=== PATIENT | female | born 1965 | race African-American/Black ===

== ENCOUNTER 2018-03-01 16:34 | Emergency (ER) | payer SELFPAY | END 2018-03-01 21:32 | disposition home or self-care (01) | LOC: D.ER 16:34 | DX: R51 Headache (principal); J01.90 Acute sinusitis, unspecified ==

== ENCOUNTER 2018-05-05 16:35 | Emergency (ER) | payer SELFPAY ==
[~2018-05-05] VITALS: Ht 162.6 cm; Wt 90.5 kg
[2018-05-05 16:47] VITALS: Ht 162.6 cm; Wt 90.5 kg
[2018-05-05] MEDS ORDERED: ULTRAM50 MG PO ×2 (16:49→17:26)
[2018-05-05] MEDS ORDERED: GABAPENTIN100 MG PO (16:49)
[2018-05-05] MEDS ORDERED: CORTISPORIN OTI10 M1 EACH EAR (17:25)
[2018-05-05] MEDS ORDERED: KEFLEX500 MG PO (17:25)
[2018-05-05 17:47] VITALS: BP 128/80
== END 2018-05-05 17:44 | disposition home or self-care (01) ==
LOC: D.ER 16:35
DX: H66.92 Otitis media, unspecified, left ear (principal); L02.01 Cutaneous abscess of face; F17.200 Nicotine dependence, unspecified, uncomplicated

== ENCOUNTER 2018-06-02 18:09 | Emergency (ER) | payer MEDICAID ==
[~2018-06-02] VITALS: Ht 162.6 cm; Wt 85.9 kg
[~2018-06-02 18:09] MED LIST: CORTISPORIN OTI10 M1 EACH EAR; GABAPENTIN100 MG PO; KEFLEX500 MG PO; ULTRAM50 MG PO
[2018-06-02 18:15] VITALS: Ht 162.6 cm; Wt 85.9 kg
[2018-06-02] MEDS ORDERED: AMBIEN5 MG PO (18:18)
[2018-06-02 18:43] LABS: BASOPHILS 0.2 % (0-2); HEMATOCRIT 32.5 % (36.0-48.0); HEMOGLOBIN 9.8 g/dL (12-16); IMMATURE GRANULOCYTES 0.2 % (0-5); LYMPHOCYTES 48.1 % (15-50); MCH 21.8 pg (26.0-34.0); MCHC 30.2 g/dL (31.0-37.0); MCV 72.4 fL (80.0-100.0); MONOCYTES 4.1 % (2-11); NEUTROPHILS 45.4 % (40-80); PLATELET COUNT 198 10x3/uL (130-400); RBC 4.49 10x6/uL (4.00-5.40); RDW 18.5 % (11.5-14.5); WBC 6.4 10x3/uL (4.8-10.8)
[2018-06-02 19:11] LABS: ALBUMIN 3.3 g/dL (3.4-5.0); ALKALINE PHOSPHATASE 112 U/L (46-116); ALT (SGPT) 18 U/L (10-68); BILIRUBIN - TOTAL 0.22 mg/dL (0.2-1.3); CALC OSMOLALITY 288 mosm/kg (275-300); CALCIUM 8.7 mg/dL (8.5-10.1); CARBON DIOXIDE 27.4 mmol/L (21.0-32.0); CHLORIDE - SERUM 108 mmol/L (98-107); CREATININE - SERUM 0.8 mg/dL (0.6-1.3); GLUCOSE 109 mg/dL (74-106); POTASSIUM - SERUM 3.6 mmol/L (3.5-5.1); PROTEIN - SERUM 7.4 g/dL (6.4-8.2); SODIUM 144 mmol/L (136-145); UREA NITROGEN 14 mg/dL (7-18); eGFR NON AFRICAN AMERICAN 80 mL/min (90-120)
[2018-06-02 20:34] LABS: CREATINE KINASE 228 UL (21-215)
[2018-06-02 20:37] LABS: TROPONIN-I < 0.017 ng/mL (0.000-0.060)
[2018-06-02] MEDS ORDERED: ROBAXIN500 MG PO (23:39)
[2018-06-02 23:53] VITALS: BP 128/80
== END 2018-06-02 23:53 | disposition home or self-care (01) ==
LOC: D.ER 18:09
PROVIDERS: Emergency Medicine; Family Medicine
DX: D64.9 Anemia, unspecified (principal); M79.1 Myalgia; R06.00 Dyspnea, unspecified; H54.40 Blindness, one eye, unspecified eye; F17.200 Nicotine dependence, unspecified, uncomplicated

== ENCOUNTER → 2019-07-04 12:58 | Outpatient (CLI) | payer BC ==
[2018-06-02 18:15] VITALS: BMI 32.5
[~2019-07-04 12:58] MED LIST changes: +AMBIEN5 MG PO; +ROBAXIN500 MG PO
== END | disposition home or self-care (01) ==
LOC: D.MRI 12:58
PROVIDERS: ATTEND Orthopaedic Surgery
DX: M25.552 Pain in left hip (principal)

== ENCOUNTER 2019-07-21 08:00 | Outpatient (CLI) | payer BC ==
[2018-06-02 18:15] VITALS: BMI 32.5
== END 2019-07-21 08:01 | disposition home or self-care (01) ==
LOC: D.MAMMO 08:00
PROVIDERS: ATTEND Family Medicine
DX: Z12.31 Encounter for screening mammogram for malignant neoplasm of breast (principal)

== ENCOUNTER → 2019-07-21 11:51 | Outpatient (CLI) | payer BC, OTHER ==
[2018-06-02 18:15] VITALS: BMI 32.5
== END | disposition home or self-care (01) ==
LOC: D.RAD 07-20 08:00
PROVIDERS: ATTEND Orthopaedic Surgery
DX: M25.552 Pain in left hip (principal)